=== PATIENT | female | born 1940 | race Caucasian/White ===

== ENCOUNTER → 2017-12-02 | Outpatient (CLI) | payer OTHER | LOC: M.RAD 09:50 | DX: Z12.31 Encounter for screening mammogram for malignant neoplasm of breast (principal); M47.896 Other spondylosis, lumbar region; M51.36 Other intervertebral disc degeneration, lumbar region; M25.561 Pain in right knee; M25.562 Pain in left knee; I10 Essential (primary) hypertension; L98.9 Disorder of the skin and subcutaneous tissue, unspecified; M54.2 Cervicalgia ==

== ENCOUNTER → 2019-01-01 | Outpatient (CLI) | payer OTHER | LOC: M.MRI 12-31 14:26 | DX: M51.16 Intervertebral disc disorders with radiculopathy, lumbar region (principal); M48.062 Spinal stenosis, lumbar region with neurogenic claudication; M25.752 Osteophyte, left hip; M51.37 Other intervertebral disc degeneration, lumbosacral region; M12.88 Other specific arthropathies, not elsewhere classified, other specified site; M25.452 Effusion, left hip; G89.29 Other chronic pain; M25.551 Pain in right hip; I10 Essential (primary) hypertension ==

== ENCOUNTER → 2019-03-27 | Outpatient (CLI) | payer OTHER ==
[2019-03-27 07:46] LABS: CREATININE 1.3 mg/dL (0.6-1.3)
== END ==
LOC: M.LAB 07:21 → M.CT 09:30
PROVIDERS: Internal Medicine
DX: M47.816 Spondylosis without myelopathy or radiculopathy, lumbar region (principal); M51.36 Other intervertebral disc degeneration, lumbar region; J84.10 Pulmonary fibrosis, unspecified; Z90.710 Acquired absence of both cervix and uterus

== ENCOUNTER → 2020-06-13 | Outpatient (CLI) | payer OTHER | LOC: M.RAD 06-07 08:31 | PROVIDERS: ATTEND Internal Medicine | DX: Z12.31 Encounter for screening mammogram for malignant neoplasm of breast (principal); N95.1 Menopausal and female climacteric states; N63.10 Unspecified lump in the right breast, unspecified quadrant ==

== ENCOUNTER → 2020-06-21 | Outpatient (CLI) | payer OTHER | LOC: M.ULTRA 10:27 | PROVIDERS: ATTEND Internal Medicine | DX: N60.01 Solitary cyst of right breast (principal); N63.10 Unspecified lump in the right breast, unspecified quadrant ==

== ENCOUNTER → 2020-12-29 | Outpatient (CLI) | payer OTHER | LOC: M.RAD 08:54 | PROVIDERS: ATTEND Internal Medicine | DX: Z78.0 Asymptomatic menopausal state (principal) ==

== ENCOUNTER → 2021-03-08 | Outpatient (CLI) | payer OTHER | LOC: M.ULTRA 08:37 | PROVIDERS: ATTEND Internal Medicine | DX: R10.11 Right upper quadrant pain (principal) ==